=== PATIENT | male | born 1995 | race Caucasian/White ===

== ENCOUNTER 2020-10-18 22:13 | Emergency (ER) | payer OTHER | END 2020-10-18 22:20 | disposition E | LOC: ER1 22:13 | DX: I46.9 Cardiac arrest, cause unspecified (principal); S09.93XA Unspecified injury of face, initial encounter; S09.90XA Unspecified injury of head, initial encounter; V49.40XA Driver injured in collision with unspecified motor vehicles in traffic accident, initial encounter; Y92.410 Unspecified street and highway as the place of occurrence of the external cause | CPT/HCPCS: 32551; 92950; 94760; 99285; J7030 ==